=== PATIENT | female | born 1990 | race African-American/Black ===

== ENCOUNTER 2022-01-24 11:09 | Outpatient (CLI) | payer OTHER ==
[2022-01-24 17:45] LABS: BASOPHILS # (AUTO) 0.1 10^3/uL (0.0-0.1); BASOPHILS % (AUTO) 0.9 %; EOSINOPHILS # (AUTO) 0.4 10^3/uL (0.0-0.7); EOSINOPHILS % (AUTO) 5.8 %; HCT - HEMATOCRIT 44.9 % (37.0-47.0); LYMPHOCYTES # (AUTO) 2.4 10^3/uL (1.5-3.5); LYMPHOCYTES % (AUTO) 34.1 %; MEAN CORPUSCULAR HEMOGLOBIN 28.2 pg (27.0-31.0); MEAN CORPUSCULAR HGB CONC 31.2 g/dL (32.0-36.0); MEAN CORPUSCULAR VOLUME 90.3 fL (81.0-99.0); MONOCYTES # (AUTO) 0.7 10^3/uL (0.0-1.0); MONOCYTES % (AUTO) 9.9 %; NEUTROPHILS # (AUTO) 3.4 10^3/uL (1.5-6.6); NEUTROPHILS % (AUTO) 49.2 %; PLT - PLATELET COUNT 335 10^3/uL (130-450); RED BLOOD COUNT 4.97 10^6/uL (4.20-5.40); RED CELL DISTRIBUTION WIDTH 11.8 % (12.0-15.0); WHITE BLOOD COUNT 6.9 x10^3/uL (4.8-10.8)
[2022-01-24 18:28] LABS: ALBUMIN 4.7 g/dL (3.2-5.5); ALBUMIN/GLOBULIN RATIO 1.1 (1.0-2.2); ALKALINE PHOSPHATASE 57 IU/L (42-121); ALT ALANINE AMINOTRANSFERASE 11 IU/L (10-60); AST ASPARTATE AMINOTRANSFERASE 22 IU/L (10-42); BILIRUBIN,TOTAL 0.8 mg/dL (0.2-1.0); BUN - BLOOD UREA NITROGEN 9 mg/dL (6-20); CARBON DIOXIDE - CO2 26 mmol/L (21-32); CHLORIDE 103 mmol/L (101-111); CHOL/HDL RATIO 3.4 (<4.4); CHOLESTEROL 201 mg/dL; CREATININE 0.7 mg/dL (0.4-1.0); GFR - MDRD 118 (>89); GLUCOSE 75 mg/dL (70-100); HDL CHOLESTEROL 60 mg/dL; LDL CHOLESTEROL,CALCULATED 127 mg/dL; LDL/HDL RATIO 2.1 (<4.4); POTASSIUM 4.1 mmol/L (3.5-5.0); SODIUM 139 mmol/L (135-145); TOTAL PROTEIN 8.8 g/dL (6.7-8.2); TRIGLYCERIDES 69 mg/dL; VLDL CHOLESTEROL 14 mg/dL
[2022-01-24 18:47] LABS: THYROID STIMULATING HORMONE 0.63 uIU/mL (0.34-5.60)
== END 2022-01-24 11:10 | disposition home or self-care (01) ==
LOC: LAB.N 11:09
PROVIDERS: ATTEND Nurse Practitioner
DX: R53.83 Other fatigue (principal); R63.6 Underweight; Z13.220 Encounter for screening for lipoid disorders
CPT/HCPCS: 36415; 80053; 80061; 83721; 84443; 85025

== ENCOUNTER 2022-05-10 13:21 | Outpatient (CLI) | payer OTHER ==
[2022-05-10 22:11] LABS: CHLAMYDIA TRACHOMATIS DNA NEGATIVE (NEGATIVE); NEISSERIA GONORRHOEAE DNA NEGATIVE (NEGATIVE); TRICHOMONAS VAGINALIS DNA NEGATIVE (NEGATIVE)
[2022-05-12 07:10] LABS: RPR Non Reactive (Non Reactive)
[2022-05-13 06:11] LABS: HIV SCREEN 4TH GENERATION Non Reactive (Non Reactive)
== END 2022-05-10 13:22 | disposition home or self-care (01) ==
LOC: LAB.N 13:21
PROVIDERS: ATTEND Nurse Practitioner
DX: Z11.3 Encounter for screening for infections with a predominantly sexual mode of transmission (principal)
CPT/HCPCS: 86592; 87389; 87491; 87591; 87661

== ENCOUNTER 2022-06-28 13:34 | Emergency (ER) | payer OTHER ==
--- NOTE | 2022-06-28 13:52 | ED Physician Documentation ---
PD HPI MHE - Stated complaint Stated Complaint: MHE - Chief complaint Chief Complaint: Neuro - History obtained from History obtained from: Patient - History of Present Illness Primary symptom: Anxiety, Other (emotional (talking loudly and anxious, but also even extra elated/ singing/ overly happy) for a week or so. Reportedly she had been having anxiety and insomnia and was feeling tired and lightheaded. Last Monday she had possible syncope at work. Seen at [facility] ER.) Contributing factors: Other (She has been having problems with anxiety and depression and has been on Lexapro. Recent increase in dose from 10 to 20 mg a couple of weeks ago per patient and provider. She had had insomnia. No recent medication for that. She does use cannibis at times.). No: Substance abuse - drugs Recently seen: Emergency Dept (seen At [facility] ER in [place] last Monday (4 days ago) with report of insomnia and anxiety and general weakness w ith a apparent syncope. ER report is obtained from [facility]. They did basic blood tests. They did not feel concussive symptoms were present. They did have SW see pt.) Review of Systems Constitutional: denies: Fever, Chills Nose: denies: Rhinorrhea / runny nose Throat: denies: Sore throat Respiratory: denies: Cough GI: denies: Vomiting, Diarrhea Neurologic: denies: Generalized weakness, Headache Psychiatric: reports: Anxiety, Insomnia. 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 : None HEENT: None Psych: Anxiety Musculoskeletal: None Derm: None - Past Surgical History Past Surgical History: No - Present Medications Home Medications: Ambulatory Orders Medication Instructions Recorded Confirmed Escitalopram [Lexapro] 10 mg PO DAILY 06/28/22 traZODone [Desyrel] 50 mg PO HS PRN 10 Days #10 tablet 06/28/22 - Allergies Allergies/Adverse Reactions: Allergies Allergy/AdvReac Type Severity Reaction Status Date / Time No Known Drug Allergies Allergy Verified 06/28/22 13:46 - Social History Does the pt smoke?: No Smoking Status: Never smoker Does the pt drink ETOH?: Yes Does the pt have substance abuse?: No - Immunizations Immunizations are current?: Yes - POLST Patient has POLST: No PD ED PE NORMAL - Vitals Vital signs reviewed: Yes - General General: Alert and oriented X 3, Well developed/nourished (thin body habitus), Other (She is actually somewhat excessively cheerful with "singsong" pattern of voice. There is some tangentiality. It is not pressured.) - HEENT HEENT: Atraumatic - Neck Neck: Supple, no meningeal sign, No adenopathy - Cardiac Cardiac: RRR, No murmur - Respiratory Respiratory: Clear bilaterally - Derm Derm: Normal color, Warm and dry - Neuro Neuro: Alert and oriented X 3, No motor deficit, Normal speech Results - Vitals Vitals: Vital Signs - 24 hr 06/28/22 06/28/22 06/28/22 13:39 13:43 14:18 Temperature 37.0 C Heart Rate 109 H 97 Respiratory 16 16 16 Rate Blood Pressure 132/85 H O2 Saturation 100 100 06/28/22 06/28/22 15:45 16:07 Temperature Heart Rate Respiratory 16 15 Rate Blood Pressure O2 Saturation Oxygen O2 Source Room air - Labs Labs: Laboratory Tests 06/28/22 06/28/22 06/28/22 14:16 14:16 14:16 WBC 10.0 RBC 4.20 Hgb 12.3 Hct 38.6 MCV 91.9 MCH 29.3 MCHC 31.9 L RDW 11.9 L Plt Count 339 MPV 9.2 Neut # (Auto) 8.5 H Lymph # (Auto) 0.9 L [place] # (Auto) 0.5 Eos # (Auto) 0.0 Baso # (Auto) 0.0 Absolute Nucleated RBC 0.00 Nucleated RBC % 0.0 Sodium 137 Potassium 3.6 Chloride 102 Carbon Dioxide 22 Anion Gap 13.0 BUN 6 Creatinine 0.6 Estimated GFR (MDRD) 140 Glucose 155 H Calcium 9.3 Total Bilirubin 0.6 AST 32 ALT 17 Alkaline Phosphatase 40 L Total Protein 8.1 Albumin 4.6 Globulin 3.5 Albumin/Globulin Ratio 1.3 Lipase 33 TSH 0.73 Urine Color Urine Clarity Urine pH Ur Specific [place] Urine Protein Urine Glucose (UA) Urine Ketones Urine Occult Blood Urine Nitrite Urine Bilirubin Urine Urobilinogen Ur Leukocyte Esterase Ur Microscopic Review Urine Culture Comments Urine HCG, Qual Urine Opiates Screen Ur Oxycodone Screen Urine Methadone Screen Ur Propoxyphene Screen Ur Barbiturates Screen Ur Tricyclics Screen Ur Phencyclidine Scrn Ur Amphetamine Screen U Methamphetamines Scrn U Benzodiazepines Scrn Urine Cocaine Screen U Cannabinoids Screen Ethyl Alcohol < 5.0 06/28/22 14:34 WBC RBC Hgb Hct MCV MCH MCHC RDW Plt Count MPV Neut # (Auto) Lymph # (Auto) [place] # (Auto) Eos # (Auto) Baso # (Auto) Absolute Nucleated RBC Nucleated RBC % Sodium Potassium Chloride Carbon Dioxide Anion Gap BUN Creatinine Estimated GFR (MDRD) Glucose Calcium Total Bilirubin AST ALT Alkaline Phosphatase Total Protein Albumin Globulin Albumin/Globulin Ratio Lipase TSH Urine Color LIGHT YELLOW Urine Clarity CLEAR Urine pH 6.0 Ur Specific [place] 1.015 Urine Protein NEGATIVE Urine Glucose (UA) NEGATIVE Urine Ketones NEGATIVE Urine Occult Blood NEGATIVE Urine Nitrite NEGATIVE Urine Bilirubin NEGATIVE Urine Urobilinogen 0.2 (NORMAL) Ur Leukocyte Esterase NEGATIVE Ur Microscopic Review NOT INDICATED Urine Culture Comments NOT INDICATED Urine HCG, Qual NEGATIVE Urine Opiates Screen NEGATIVE Ur Oxycodone Screen NEGATIVE Urine Methadone Screen NEGATIVE Ur Propoxyphene Screen NEGATIVE Ur Barbiturates Screen NEGATIVE Ur Tricyclics Screen NEGATIVE Ur Phencyclidine Scrn NEGATIVE Ur Amphetamine Screen NEGATIVE U Methamphetamines Scrn NEGATIVE U Benzodiazepines Scrn NEGATIVE Urine Cocaine Screen NEGATIVE U Cannabinoids Screen POSITIVE H Ethyl Alcohol PD Medical Decision Making - ED course Complexity details: reviewed old records (The ER report from [facility] from 4 days ago was faxed to us and I reviewed the testing and social work note. They did not feel she met grounds for disability. Referred back to her primary care.), d/w PMD (I talked with the patient's primary care in the office. Concern is the increased Lexapro dose may have brought out some manic type symptoms so concern for bipolar. Consensus was to decrease the Lexapro would back down to 10 mg and add 50 mg trazodone at night to help with insomnia and mood.), d/w is consultant (I talked with our web content & social media manager Tarah and had her evaluate the patient. Concern was for the patient's degree of hypomania and whether she would be safe as is. Tarah believes the DCR should evaluate the patient and they are contacted.) Departure - Departure Clinical Impression: Anxiety, Insomnia, Hypomania Condition: Stable Record reviewed to determine appropriate education?: Yes Follow-Up: Shahrzad Cooper ARNP [Primary Care Provider] - Prescriptions: traZODone [Desyrel] 50 mg PO HS PRN 10 Days #10 tablet PRN Reason: Insomnia
[2022-06-28] MEDS ORDERED: OLANZapine ODT 5 MG TABLET TL STA (14:08)
[2022-06-28 14:32] LABS: ALBUMIN 4.6 g/dL (3.2-5.5); ALBUMIN/GLOBULIN RATIO 1.3 (1.0-2.2); ALKALINE PHOSPHATASE 40 IU/L (42-121); ALT ALANINE AMINOTRANSFERASE 17 IU/L (10-60); AST ASPARTATE AMINOTRANSFERASE 32 IU/L (10-42); BILIRUBIN,TOTAL 0.6 mg/dL (0.2-1.0); BUN - BLOOD UREA NITROGEN 6 mg/dL (6-20); CALCIUM 9.3 mg/dL (8.5-10.3); CARBON DIOXIDE - CO2 22 mmol/L (21-32); CHLORIDE 102 mmol/L (101-111); CREATININE 0.6 mg/dL (0.4-1.0); ETOH - ETHANOL < 5.0 mg/dL; GFR - MDRD 140 (>89); GLUCOSE 155 mg/dL (70-100); LIPASE 33 U/L (22-51); POTASSIUM 3.6 mmol/L (3.5-5.0); SODIUM 137 mmol/L (135-145); TOTAL PROTEIN 8.1 g/dL (6.7-8.2)
[2022-06-28 14:35] LABS: BASOPHILS % (AUTO) 0.3 %; HCT - HEMATOCRIT 38.6 % (37.0-47.0); HGB - HEMOGLOBIN 12.3 g/dL (12.0-16.0); LYMPHOCYTES # (AUTO) 0.9 10^3/uL (1.5-3.5); LYMPHOCYTES % (AUTO) 8.9 %; MEAN CORPUSCULAR HEMOGLOBIN 29.3 pg (27.0-31.0); MEAN CORPUSCULAR HGB CONC 31.9 g/dL (32.0-36.0); MEAN CORPUSCULAR VOLUME 91.9 fL (81.0-99.0); MEAN PLATELET VOLUME 9.2 fL (7.9-10.8); MONOCYTES # (AUTO) 0.5 10^3/uL (0.0-1.0); MONOCYTES % (AUTO) 4.6 %; NEUTROPHILS # (AUTO) 8.5 10^3/uL (1.5-6.6); NEUTROPHILS % (AUTO) 85.8 %; PLT - PLATELET COUNT 339 10^3/uL (130-450); RED CELL DISTRIBUTION WIDTH 11.9 % (12.0-15.0)
[2022-06-28 14:40] LABS: MUDS CUTOFF CONCENTRATIONS CUTOFF CONC BELOW:
[2022-06-28 14:46] LABS: BILIRUBIN,URINE NEGATIVE (NEGATIVE); GLUCOSE, URINE (UA) NEGATIVE (NEGATIVE); KETONES,URINE (UA) NEGATIVE (NEGATIVE); LEUKOCYTE ESTERASE, URINE NEGATIVE (NEGATIVE); NITRITE,URINE NEGATIVE (NEGATIVE); OCCULT BLOOD,URINE NEGATIVE (NEGATIVE); PROTEIN,URINE NEGATIVE (NEGATIVE); UROBILINOGEN,URINE 0.2 (NORMAL) E.U./dL (NORMAL)
[2022-06-28 14:49] LABS: CLARITY,URINE CLEAR (CLEAR); HCG UR QUAL NEGATIVE
[2022-06-28] MEDS ORDERED: OLANZapine ODT 5 MG TABLET TL ONE (15:00)
[2022-06-28 15:01] LABS: AMPHETAMINE SCREEN,URINE NEGATIVE (NEGATIVE); BARBITURATE SCREEN,UR NEGATIVE (NEGATIVE); BENZODIAZEPINES SCREEN, URINE NEGATIVE (NEGATIVE); COCAINE SCREEN URINE NEGATIVE (NEGATIVE); METHADONE SCREEN, URINE NEGATIVE (NEGATIVE); METHAMPHETAMINES SCREEN, URINE NEGATIVE (NEGATIVE); OPIATE SCREEN, URINE NEGATIVE (NEGATIVE); OXYCODONE SCREEN, URINE NEGATIVE (NEGATIVE); PROPOXYPHENE SCREEN, URINE NEGATIVE (NEGATIVE); THC CANNABINOID SCREEN, URINE POSITIVE (NEGATIVE); TRICYCLIC ANTIDEPRESSANT,URINE NEGATIVE (NEGATIVE)
--- NOTE | 2022-06-28 20:06 | ED Physician Documentation ---
ED Addendum - Addendum Addendum: 06/28/22 20:[address] eRina at shift change. Briefly this is a 31-year-old woman who presents with pressured speech after an increase in Lexapro. The plan was to have the DCR evaluate her. At this point that process is complete. I discussed with the DCR and she is not detaining her. She will have the out reach social economist call her tomorrow. Disposition: Discharged home Condition: Stable
[2022-06-28 20:16] VITALS: BP 119/79
[2022-06-28] MEDS ORDERED: traZODone 50 MG TABLET PO STA (20:36)
== END 2022-06-28 20:43 | disposition home or self-care (01) ==
LOC: EDBD → ED 13:34
DX: F41.9 Anxiety disorder, unspecified (principal); G47.00 Insomnia, unspecified; F30.8 Other manic episodes; Z20.822 Contact with and (suspected) exposure to COVID-19
CPT/HCPCS: 36415; 80053; 80306; 80320; 81003; 81025; 83690; 84443; 85025; 87635; 99283; 99284; A9270; 81001; 87086

== ENCOUNTER 2022-07-02 01:12 | Emergency (ER) | payer OTHER ==
[2022-07-02 02:25] LABS: BASOPHILS # (AUTO) 0.1 10^3/uL (0.0-0.1); BASOPHILS % (AUTO) 0.6 %; EOSINOPHILS # (AUTO) 0.1 10^3/uL (0.0-0.7); EOSINOPHILS % (AUTO) 1.5 %; HCT - HEMATOCRIT 38.1 % (37.0-47.0); HGB - HEMOGLOBIN 12.2 g/dL (12.0-16.0); LYMPHOCYTES # (AUTO) 1.9 10^3/uL (1.5-3.5); LYMPHOCYTES % (AUTO) 19.5 %; MEAN CORPUSCULAR HEMOGLOBIN 29.5 pg (27.0-31.0); MEAN CORPUSCULAR VOLUME 92.3 fL (81.0-99.0); MEAN PLATELET VOLUME 9.2 fL (7.9-10.8); MONOCYTES # (AUTO) 0.6 10^3/uL (0.0-1.0); MONOCYTES % (AUTO) 6.1 %; NEUTROPHILS # (AUTO) 6.9 10^3/uL (1.5-6.6); NEUTROPHILS % (AUTO) 71.9 %; PLT - PLATELET COUNT 331 10^3/uL (130-450); RED BLOOD COUNT 4.13 10^6/uL (4.20-5.40); RED CELL DISTRIBUTION WIDTH 11.9 % (12.0-15.0); WHITE BLOOD COUNT 9.7 x10^3/uL (4.8-10.8)
[2022-07-02 02:26] LABS: BILIRUBIN,URINE NEGATIVE (NEGATIVE); GLUCOSE, URINE (UA) NEGATIVE (NEGATIVE); KETONES,URINE (UA) NEGATIVE (NEGATIVE); LEUKOCYTE ESTERASE, URINE TRACE (NEGATIVE); MUDS CUTOFF CONCENTRATIONS CUTOFF CONC BELOW:; NITRITE,URINE NEGATIVE (NEGATIVE); OCCULT BLOOD,URINE MODERATE (NEGATIVE); PROTEIN,URINE NEGATIVE (NEGATIVE); UROBILINOGEN,URINE 0.2 (NORMAL) E.U./dL (NORMAL)
[2022-07-02 02:28] LABS: CLARITY,URINE CLEAR (CLEAR)
[2022-07-02 02:30] LABS: HCG UR QUAL NEGATIVE
[2022-07-02 02:33] LABS: BACTERIA,URINE Few /HPF (None Seen); RBC,URINE 0-5 /HPF (0-5); SQUAMOUS EPITHELIAL CELL,UR FEW Squamous (<= Few); WBC,URINE 0-3 /HPF (0-5)
[2022-07-02 02:44] LABS: ACETAMINOPHEN < 10 ug/mL (10-30); ALBUMIN 4.5 g/dL (3.2-5.5); ALBUMIN/GLOBULIN RATIO 1.2 (1.0-2.2); ALKALINE PHOSPHATASE 38 IU/L (42-121); ALT ALANINE AMINOTRANSFERASE 15 IU/L (10-60); AMPHETAMINE SCREEN,URINE NEGATIVE (NEGATIVE); AST ASPARTATE AMINOTRANSFERASE 26 IU/L (10-42); BARBITURATE SCREEN,UR NEGATIVE (NEGATIVE); BENZODIAZEPINES SCREEN, URINE NEGATIVE (NEGATIVE); BILIRUBIN,TOTAL 0.4 mg/dL (0.2-1.0); BUN - BLOOD UREA NITROGEN 11 mg/dL (6-20); CALCIUM 9.7 mg/dL (8.5-10.3); CARBON DIOXIDE - CO2 25 mmol/L (21-32); CHLORIDE 102 mmol/L (101-111); COCAINE SCREEN URINE NEGATIVE (NEGATIVE); CREATININE 0.7 mg/dL (0.4-1.0); ETOH - ETHANOL < 5.0 mg/dL; GFR - MDRD 118 (>89); GLUCOSE 100 mg/dL (70-100); LIPASE 33 U/L (22-51); METHADONE SCREEN, URINE NEGATIVE (NEGATIVE); METHAMPHETAMINES SCREEN, URINE NEGATIVE (NEGATIVE); OPIATE SCREEN, URINE NEGATIVE (NEGATIVE); OXYCODONE SCREEN, URINE NEGATIVE (NEGATIVE); POTASSIUM 3.5 mmol/L (3.5-5.0); PROPOXYPHENE SCREEN, URINE NEGATIVE (NEGATIVE); SALICYLATE < 6.0 mg/dL; SODIUM 137 mmol/L (135-145); THC CANNABINOID SCREEN, URINE POSITIVE (NEGATIVE); TOTAL PROTEIN 8.4 g/dL (6.7-8.2); TRICYCLIC ANTIDEPRESSANT,URINE NEGATIVE (NEGATIVE)
--- NOTE | 2022-07-02 04:46 | ED Physician Documentation ---
PD HPI ALTERED MENTAL STATUS - Stated complaint Stated Complaint: AMS - Chief complaint Chief Complaint: Neuro - History obtained from History obtained from: Patient - History of Present Illness Recently seen: Emergency Dept - Additional information Additional information: Patient is brought to the emergency department by her friend who is concerned that patient has been exhibiting odd behavior. The HPI from patient is limited due to odd behavior. In trying to provide HPI, patient is frequently rambling and tangential, at times appears to be angry and then suddenly becomes tearful and appears overwhelmed. She says she was evaluated for a head injury last week in ED. She was more recently evaluated in this ED ([facility], 06/28) for manic behavior. She says she has a follow-up appointment with her PMD within the coming week, and is scheduled to meet with a psychiatrist July 27. She tells me she has bipolar disorder and feels paranoid at times; she says she has been experiencing insomnia. She denies SI, HI, AH, VH. Review of Systems Unable to obtain: Other (limited ROS due to odd/manic behavior) Psychiatric: reports: Anxiety, Insomnia. 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 : None HEENT: None Psych: Anxiety Musculoskeletal: None Derm: None - Past Surgical History Past Surgical History: No - Present Medications Home Medications: Ambulatory Orders Medication Instructions Recorded Confirmed Escitalopram [Lexapro] 10 mg PO DAILY 06/28/22 traZODone [Desyrel] 50 mg PO HS PRN 10 Days #10 tablet 06/28/22 - Allergies Allergies/Adverse Reactions: Allergies Allergy/AdvReac Type Severity Reaction Status Date / Time No Known Drug Allergies Allergy Verified 07/02/22 01:38 - Social History Does the pt smoke?: No Smoking Status: Never smoker Does the pt drink ETOH?: Yes Does the pt have substance abuse?: No - Immunizations Immunizations are current?: Yes - POLST Patient has POLST: No PD ED PE NORMAL - Vitals Vital signs reviewed: Yes - General General: Well developed/nourished, Other (awake, alert, oriented to person, place. she exhibits pressured speech, rapidly fluctuating mood (angry, tearful)) - HEENT HEENT: PERRL, EOMI, Moist mucous membranes - Cardiac Cardiac: RRR, No murmur - Respiratory Respiratory: No respiratory distress, Clear bilaterally - Neuro Eye Opening: Spontaneous Motor: Obeys Commands Verbal: Confused GCS Score: 14 PD ED PE EXPANDED - Psych Psych: Tearful, Anxious, Pressured speech, Other (tangential, confused at times (often loses track of what she is trying to say and says "I'm confused")) Results - Vitals Vitals: Vital Signs - 24 hr 07/02/22 07/02/22 07/02/22 01:23 02:07 04:49 Temperature 36.9 C Heart Rate 86 74 105 H Respiratory 18 16 Rate Blood Pressure 119/74 124/86 H 140/89 H O2 Saturation 100 100 100 07/02/22 07/02/22 05:56 15:56 Temperature Heart Rate 93 85 Respiratory 18 16 Rate Blood Pressure 114/64 119/82 H O2 Saturation 98 100 Oxygen O2 Source Room air - Labs Labs: Microbiology 07/02/22 02:18 Urine Culture - Preliminary Urine,Clean Catch CULTURE IN PROGRESS. RESULTS TO FOLLOW. Laboratory Tests 07/02/22 07/02/22 07/02/22 02:18 02:18 02:18 WBC 9.7 RBC 4.13 L Hgb 12.2 Hct 38.1 MCV 92.3 MCH 29.5 MCHC 32.0 RDW 11.9 L Plt Count 331 MPV 9.2 Neut # (Auto) 6.9 H Lymph # (Auto) 1.9 [place] # (Auto) 0.6 Eos # (Auto) 0.1 Baso # (Auto) 0.1 Absolute Nucleated RBC 0.00 Nucleated RBC % 0.0 VBG Total Hgb VBG Oxyhemoglobin VBG Carboxyhemoglobin VBG Methemoglobin Sodium 137 Potassium 3.5 Chloride 102 Carbon Dioxide 25 Anion Gap 10.0 BUN 11 Creatinine 0.7 Estimated GFR (MDRD) 118 Glucose 100 Calcium 9.7 Total Bilirubin 0.4 AST 26 ALT 15 Alkaline Phosphatase 38 L Total Protein 8.4 H Albumin 4.5 Globulin 3.9 Albumin/Globulin Ratio 1.2 Lipase 33 TSH 0.82 Urine Color Urine Clarity Urine pH Ur Specific [place] Urine Protein Urine Glucose (UA) Urine Ketones Urine Occult Blood Urine Nitrite Urine Bilirubin Urine Urobilinogen Ur Leukocyte Esterase Urine RBC Urine WBC Ur Squamous Epith Cells Urine Bacteria Ur Microscopic Review Urine Culture Comments Urine HCG, Qual Salicylates < 6.0 Urine Opiates Screen Ur Oxycodone Screen Urine Methadone Screen Ur Propoxyphene Screen Acetaminophen < 10 L Ur Barbiturates Screen Ur Tricyclics Screen Ur Phencyclidine Scrn Ur Amphetamine Screen U Methamphetamines Scrn U Benzodiazepines Scrn Urine Cocaine Screen U Cannabinoids Screen Ethyl Alcohol < 5.0 07/02/22 07/02/22 02:18 06:06 WBC RBC Hgb Hct MCV MCH MCHC RDW Plt Count MPV Neut # (Auto) Lymph # (Auto) [place] # (Auto) Eos # (Auto) Baso # (Auto) Absolute Nucleated RBC Nucleated RBC % VBG Total Hgb 13.4 VBG Oxyhemoglobin 70 L VBG Carboxyhemoglobin 1.1 VBG Methemoglobin 0.4 Sodium Potassium Chloride Carbon Dioxide Anion Gap BUN Creatinine Estimated GFR (MDRD) Glucose Calcium Total Bilirubin AST ALT Alkaline Phosphatase Total Protein Albumin Globulin Albumin/Globulin Ratio Lipase TSH Urine Color YELLOW Urine Clarity CLEAR Urine pH 6.0 Ur Specific [place] 1.010 Urine Protein NEGATIVE Urine Glucose (UA) NEGATIVE Urine Ketones NEGATIVE Urine Occult Blood MODERATE H Urine Nitrite NEGATIVE Urine Bilirubin NEGATIVE Urine Urobilinogen 0.2 (NORMAL) Ur Leukocyte Esterase TRACE H Urine RBC 0-5 Urine WBC 0-3 Ur Squamous Epith Cells FEW Squamous Urine Bacteria Few Ur Microscopic Review INDICATED Urine Culture Comments INDICATED Urine HCG, Qual NEGATIVE Salicylates Urine Opiates Screen NEGATIVE Ur Oxycodone Screen NEGATIVE Urine Methadone Screen NEGATIVE Ur Propoxyphene Screen NEGATIVE Acetaminophen Ur Barbiturates Screen NEGATIVE Ur Tricyclics Screen NEGATIVE Ur Phencyclidine Scrn NEGATIVE Ur Amphetamine Screen NEGATIVE U Methamphetamines Scrn NEGATIVE U Benzodiazepines Scrn NEGATIVE Urine Cocaine Screen NEGATIVE U Cannabinoids Screen POSITIVE H Ethyl Alcohol PD Medical Decision Making - ED course Complexity details: reviewed old records, reviewed results, re-evaluated patient, considered differential, d/w patient ED course: Patient presents with odd, manic behavior. As noted above, she fluctuates rapidly tween appearing to be very angry and will suddenly become tearful, even crying at times, frequently loses track of what she is saying and says "I am confused". A telepsych consult is obtained. Although patient seems angry with me when I recommended getting the telemetry psychiatric consult, she does consent to it. The patient tells me "I already have a psychiatrist", but then indicates to me that she is not scheduled to meet with a psychiatrist until next month on 27 July. I explained to the patient that I am concerned that the medication regimen she is currently on does not appear to be having the desired effect. Telemetry psychiatric consult is obtained and the recommendation is for the patient to stop her current medications (trazodone, escitalopram, buspirone), and to start olanzapine 5 mg nightly. Telepsychiatrist says that patient can be given a dose of olanzapine in the emergency department now with the initial dose of 2.5 mg, and a repeat dose of the same 2.5 mg dose can be given if patient does not have adverse effect but does not have adequate symptom control. The telepsychiatrist indicates to me that she tried to get in touch with the patient's who is reportedly on deployment, but was unsuccessful in this attempt. Thus, the telepsychiatrist contacted Ashley, who is on [place] as the point of contact for this patient. Ashley will look into whether she can arrange with her work time off so that she can stay with the patient and observe her behavior for the coming week. If Ever is not able to arrange this, the telepsychiatrist concern is that there will be no one who can reliably observe the patient for the coming week to monitor for worsening manic behaviors; if this is the case, then telepsychiatry recommends inpatient stay at an appropriate mental health capable facility. Care of patient is turned over to the oncoming ED physician (Dr. Modi). Social work consult is obtained and this is also pending at the end of my shift. Departure - Departure Disposition: [facility] Psych Hosp/Unit DC/Xfer
[2022-07-02] MEDS ORDERED: ESCITALOPRAM 10 MG TABLET PO STA (05:40)
[2022-07-02 06:28] LABS: CARBOXYHEMOGLOBIN VENOUS 1.1 % (0-1.5); HEMOGLOBIN TOTAL, VENOUS WB 13.4 g/dL (12.0-18.0); METHEMOGLOBIN VENOUS 0.4 % (0-1.5)
[2022-07-02] MEDS ORDERED: OLANZapine ODT 5 MG TABLET TL STA (08:00)
--- NOTE | 2022-07-02 08:07 | TELEPSYCH PHYS NOTE ---
Telepsych Consultation Note Consult: Name: BRADFORD VELASCOEDOB: 1990 DateandTime: 07/02/2022 10:08:08 AM Location of the patient: [facility] EDLocation of the doctor: [place] Length of consult: 60 This evaluation was conducted via video telepsychiatry with the assistance of onsite staff Reason for consult: assess active risk factor Requested by: Dr. Bautista History of Present Illness: Patient seen in ED via telehealth with local staff assistance. Per attending, patient came in to ED also on 06/28 and was seen by SW, but released as she did not meet full criteria for inpatient admission at that time. There have been concerns for a recent head injury and possible gas leak at home. Lexapro reduced at last ED admission to 10mg with concern for jony. Friend brought patient in today for continued emotional disturbance. UDS + THC. Patient reports she "went to a bar before hand, didnt sleep, then I hit my head and woke up in the hospital last Monday". She then had a "scheduled panic attack" Monday and a reports a "gas leak" 07/01. She reports she feels "confused, paranoid and agitated". Thoughts are racing and she "cant get a thought out". 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 She admits she is having "trouble sitting still". Patient denies SI, HI. She reports she used some THC and "i dont think I am going to do that again". She would rather go home and sleep, doesnt want to be in the hospital. Her is deployed but she thinks she has some friends who would supervise her for awhile outpatient. Collateral Contacted: YesCollateral name:Jocelyn phone number: [phone] relationship to the patient:emergency contact, friend Sleep issues?: YesSleep Quantity:not sleepingSleep Quality:poor Psychiatric History/Treatment History: Past diagnoses: depression, anxiety Hospitalizations: No Current Treatment:YesMedication management:YesMedications:lexapro, trazodoneTherapy:No Suicide Assessment: PSS-3: 1) Over the past 2 weeks have you felt down, depressed or hopeless?No 2) Over the past 2 weeks have you had thoughts of killing yourself?No 3) Have you ever in your life attempted to kill yourself?Yes Within the past 6 months?No Description:as a child, tried to OD [employer]-based Safety Assessment: Risk Factors Stressors: MH issues, deployed Attempts/Self-injury: No Impulsivity:YesDescription: Drug/Alcohol History:YesDescription: Trauma History:YesDescription: Access to firearms:YesDescription: HI/Violence/Property destruction:No Legal: No Family Psych History:YesDescription:father from AUD, mother with Personality disorder Family History of suicide:No Protective Factors: Can handle stress well?No Denominational?Unknown-NA External: Social supports/ Therapeutic relationships: YesDescription: Relationship history: Living situation: Employment: YesDescription:new job started this past week Education: grad hs Responsibility to family/children/work: YesDescription: Future orientation:YesDescription:wants to feel better, wants to work Health History: Medical History: underweight Medications & Freq: lexapro 10mg daily trazodone 50mg QHS Allergies: KNDA Mental Status Exam: Appearance and Attire:Good eye contact, Thin Psychomotor agitation:restless, fidgety Attitude and behavior:Cooperative Speech:Rapid Mood:Irritable, Anxious Affect:Constricted Thought process:Derailment, Flight of ideas, Racing thoughts Thought content:Paranoia Perception:No hallucinations Intel:Average Abstract:Appropriate Language:No abnormality Orientation:Oriented x 4 Sense:Distractible Knowledge:Appropriate for education and socioeconomic status Memory:Intact Insight:Mild impairment Judgement:Moderate impairmentImpaired in self care Gait:No abnormality Impression/Risk Assessment: Current Suicide Risk Elevated?No Current Violence Risk Elevated?No Issues with ability to care for self?Yes Description:thought disorganization is impairing ability to stay on top of self care Summary: Patient is a 32 yo AA female with a history of depression and anxiety who presents to ED with a friend for worsening thought disorganization and confusion. Patient reports increased paranoia, racing thoughts and feeling agitated. She has been using THC and may have had a head injury in the last week which could have worsened her presentation. Lexapro was recently reduced with concern for jony a week ago, but symptoms have continued. Patient is a good candidate for stopping antidepressant treatment and starting a mood stabilizing medication. She is mildly disorganized on presentation, but is not suicidal or homicidal and has been redirectable and agreeable to treatment. Certainly she needs direct supervision for her own safety at this time. If a reasonable hot packer cannot assist her in the community while she waits for outpatient care, she should be admitted inpatient to ensure stabilization. Diagnosis: F31.12 Bipolar disorder, current episode manic without psychotic features, moderate CPT Codes: 71382 - Psychiatric Diagnostic Evaluation with Medical Services Treatment Plan: General: Stop lexapro and trazodone. Start olanzapine 5mg QHS. May give patient low dose in ED now, 2.5mg, to test tolerance and reduce any agitation. Doses as high as 10mg QHS may be considered if low doses do not assist sufficiently while she remain in the ED today. Patient's friend, Ashley, indicates she may be willing to take responsibility for patient for now and assist her with outpatient follow up needs. If this is not possible, please refer patient for inpatient psychiatric hospitalization as she is not safe to care for herself at this time. Please request patient and family/friend assist with moving psychiatry appt to earlier date. If patient's symptoms continue and patient remains outpatient, please encourage ED contact again for re-assessment. Level of Care: as above Psychiatric Clearance: YesDescription:if community supervision can be arranged, if not- patient must be psychiatrically hospitalized for her own safety and stabilization Observation level 1:1 needed?: YesNotes:awol and disorganization concerns Pharmacological: start olanzapine as above Patient psychotic?YesWas a standing psychotic ordered?YesDescription: minimal paranoia currently- starting olanzapine for jony stabilization Therapy: supportive Follow up needed while in the hospital?: YesNumber of times:daily if admitted Discussed plan with onsite tennis desk team member: Yes Who anita Andrade Other: List names and roles of persons who participated in consult: Anita Shook
--- NOTE | 2022-07-02 13:28 | ED Physician Documentation ---
ED Addendum - Addendum Addendum: 07/02/22 13:27 Seen by director of social services and arrangements made for her to go to [facility], but not until much later in the evening. [place] were completed. She is stable for transport. Disposition: Transferred to psychiatric facility Condition: Stable Diagnosis: 1. Decompensated bipolar disorder
[2022-07-03 02:36] VITALS: BP 122/80
== END 2022-07-02 23:20 ==
LOC: ED 01:12
DX: F31.12 Bipolar disorder, current episode manic without psychotic features, moderate (principal)
CPT/HCPCS: 36415; 80053; 80306; 80307; 80320; 80329; 81001; 81025; 82375; 83690; 84443; 85025; 87086; 90834; 99285; A9270; Q3014; 81003

== ENCOUNTER 2022-08-18 10:30 | Outpatient (CLI) | payer OTHER ==
[2022-08-18 20:56] LABS: CHLAMYDIA TRACHOMATIS DNA NEGATIVE (NEGATIVE); NEISSERIA GONORRHOEAE DNA NEGATIVE (NEGATIVE); TRICHOMONAS VAGINALIS DNA NEGATIVE (NEGATIVE)
[2022-08-19 05:13] LABS: HCV AB Non Reactive (Non Reactive); HIV SCREEN 4TH GENERATION Non Reactive (Non Reactive)
[2022-08-19 09:11] LABS: HSV 2 IGG TYPE SPEC <0.91 index (0.00-0.90); RPR Non Reactive (Non Reactive)
== END 2022-08-18 10:45 | disposition home or self-care (01) ==
LOC: LAB.N 10:30
PROVIDERS: ATTEND Nurse Practitioner
DX: Z11.3 Encounter for screening for infections with a predominantly sexual mode of transmission (principal)
CPT/HCPCS: 36415; 86592; 86695; 86696; 86803; 87389; 87491; 87591; 87661

== ENCOUNTER 2022-11-09 08:33 | Outpatient (CLI) | payer OTHER ==
[2022-11-09 12:01] LABS: BASOPHILS # (AUTO) 0.1 10^3/uL (0.0-0.1); BASOPHILS % (AUTO) 0.6 %; EOSINOPHILS # (AUTO) 0.4 10^3/uL (0.0-0.7); EOSINOPHILS % (AUTO) 3.7 %; HCT - HEMATOCRIT 42.4 % (37.0-47.0); HGB - HEMOGLOBIN 13.2 g/dL (12.0-16.0); LYMPHOCYTES # (AUTO) 2.1 10^3/uL (1.5-3.5); MEAN CORPUSCULAR HEMOGLOBIN 28.9 pg (27.0-31.0); MEAN CORPUSCULAR HGB CONC 31.1 g/dL (32.0-36.0); MEAN CORPUSCULAR VOLUME 92.8 fL (81.0-99.0); MEAN PLATELET VOLUME 9.6 fL (7.9-10.8); MONOCYTES # (AUTO) 0.7 10^3/uL (0.0-1.0); MONOCYTES % (AUTO) 6.2 %; NEUTROPHILS # (AUTO) 8.2 10^3/uL (1.5-6.6); NEUTROPHILS % (AUTO) 71.1 %; PLT - PLATELET COUNT 359 10^3/uL (130-450); RED BLOOD COUNT 4.57 10^6/uL (4.20-5.40); RED CELL DISTRIBUTION WIDTH 12.4 % (12.0-15.0); WHITE BLOOD COUNT 11.6 x10^3/uL (4.8-10.8)
[2022-11-09 12:39] LABS: ALBUMIN 4.4 g/dL (3.2-5.5); ALBUMIN/GLOBULIN RATIO 1.3 (1.0-2.2); ALKALINE PHOSPHATASE 59 IU/L (42-121); ALT ALANINE AMINOTRANSFERASE 40 IU/L (10-60); AST ASPARTATE AMINOTRANSFERASE 46 IU/L (10-42); BILIRUBIN,TOTAL 0.4 mg/dL (0.2-1.0); BUN - BLOOD UREA NITROGEN 11 mg/dL (6-20); CALCIUM 9.9 mg/dL (8.5-10.3); CARBON DIOXIDE - CO2 26 mmol/L (21-32); CHLORIDE 104 mmol/L (101-111); CHOL/HDL RATIO 3.6 (<4.4); CHOLESTEROL 277 mg/dL; CREATININE 0.8 mg/dL (0.6-1.3); GFR - MDRD 100 (>89); GLUCOSE 85 mg/dL (74-104); HDL CHOLESTEROL 76 mg/dL; LDL CHOLESTEROL,CALCULATED 173 mg/dL; LDL/HDL RATIO 2.3 (<4.4); SODIUM 137 mmol/L (135-145); TOTAL PROTEIN 7.9 g/dL (6.4-8.9); TRIGLYCERIDES 139 mg/dL (48-352); VLDL CHOLESTEROL 28 mg/dL
[2022-11-09 12:46] LABS: THYROID STIMULATING HORMONE 1.76 uIU/mL (0.34-5.60)
[2022-11-09 12:51] LABS: ESTIMATED AVERAGE GLUCOSE 65 mg/dL (70-100); HEMOGLOBIN A1c% 3.9 % (4.27-6.07)
== END 2022-11-09 08:34 | disposition home or self-care (01) ==
LOC: LAB.N 08:33
PROVIDERS: ATTEND Nurse Practitioner
DX: Z79.899 Other long term (current) drug therapy (principal)
CPT/HCPCS: 36415; 80053; 80061; 83036; 83721; 84443; 85025

== ENCOUNTER 2023-11-13 14:55 | Outpatient (CLI) | payer OTHER ==
--- NOTE | 2023-11-13 18:15 | SLEEP CARE CONSULTATION ---
Information from patient questionnaire entered by Andrew Gleason. I have reviewed and concur with the information entered by Andrew Gleason. This document represents the service I personally performed and the decisions made by me, Melissa Mitchell MD, [facility]. History of Present Illness Service Date and Time: 11/13/2023 1455 Reason for Visit: New patient Date of Onset: SINCE MARCH Usual bedtime: 2100 Time it takes to fall asleep: 30-60MINS Snores at night: No Observed to quit breathing while asleep: No Sleeps alone due to snoring: No Number of times waking at night: 2-4 Reasons for waking at night: reports: Other (UNKNOWN, NOISE) Toss, Turn, or Twitch while sleeping: Yes Recalls having dreams: Yes Usually gets out of bed at: 0545 Feels refreshed in the morning: No Morning headache: Yes Sleepy or fatigued during the day: Yes Ever fallen asleep while driving: No Takes day naps: Yes Dreams during day naps: No Prior sleep studies: No Additional HPI information: I have the pleasure of seeing Ms. Griffin today regarding the possibility of her having obstructive sleep apnea. As you know, she is a 33-year-old lady who complains of insomnia since March of this year. The patient tells me that she normally goes to bed around 9 pm, and it takes her approximately 30 - 60 minutes to fall asleep. She does not snore. She has never been observed to stop breathing in her sleep. Her sleeps in the same bed. She can recall waking up on the average of 2 - 4 times during the night. Most of the time she wakes up because of unknown reason. She has never awakened because of her own snoring, choking, or having to gasp for air. There is a lot of tossing and turning in her sleep. She has somniloquy (sleep talking) but not somnambulism (sleepwalking). Generally, she can recall having dreams. In the morning she usually gets up out of the bed around 5:45 a.m. not feeling refreshed nor rested. On her days off, she gets up between 8 10 am. She usually has a morning headache that is gone after a cup of coffee. During the day she complains of feeling sleepy and fatigued. Her score on Dresden Sleepiness Scale is 8 out of 24. She never has fallen asleep while driving nor has had any accident due to sleepiness. She usually does not take naps during the day. She denies having impaired concentration during the day. - Parasomnia Symptoms Ever been unable to move upon waking from sleep: No Walks in sleep: No Talks in sleep: Yes Ever acted out dreams in sleep: Yes Ever felt weak in the knees when startled or emotional: Yes Bothered by creepy, crawly, restless sensations in legs: No Subjective Initial D[place]den Sleepiness Scale score: 8 (11/13/23) Past Medical History Past Medical History: reports: Anxiety Social History The patient's occupation is a UNEMPLOYED. Patient is and lives in . Have you smoked in the past 12 months: No Cigarettes per day (20/pack): 10 Years of smokin Quit date: 2021 Smoking Pack Years: 5.0 Alcohol use: No Caffeine use: Yes Caffeine amount and frequency: 2-4CUPS EVERYDAY Family History Family history of sleep disordered breathing: Yes Family Hx Sleep Apnea: Mother: Snoring, Sleep apnea - Treated, Grandparent: Snoring Allergies and Home Medications Known drug allergies: No Drug allergies reviewed: Yes Home medication list reviewed: Yes Allergy and home medication list: Allergies No Known Drug Allergies Allergy (Verified 11/13/23 14:58) Review of Systems Weight gain over past 5 years: 30 Weight loss over past 5 years: 25 Cardiovascular: denies: high blood pressure, palpitations, chest pain, irregular heart rate or pulse, leg or foot swelling, have to sleep sitting up, other Respiratory: denies: shortness of breath, wheeze, sputum production, chronic cough, other Gastrointestinal: denies: heartburn, difficulty swallowing, nausea, vomitting, diarrhea, abdominal pain, other Urinary: denies: incontinence, frequency, urgency, impotence, other Neurological: reports: headaches Psychiatric: reports: anxiety Ear/Nose/Throat: reports: wisdom teeth removed Endocrine: denies: thyroid disease, history of goiter, sluggishness, too hot or cold, excessive thirst, increased appetite, increased urination, unexplained weakness, other Musculoskeletal: denies: joint pain, neck pain, back pain, joint swelling, muscle pain or cramping, mobility problems, other Immunologic: reports: sneezing, allergies to food or environment Physical Exam Vital signs obtained and entered by: ANDREW Figueroa MA Blood Pressure: 110/72 (RIGHT ARM) Cuff size: regular Heart Rate: 79 O2 Saturation: 100 Height: 5 ft 0.75 in Weight: 110 lb 12.8 oz Body Mass Index: 21.1 BMI Classification: Normal Neck circumference: 13.75 Mood/affect: normal HEENT: No craniofacial malformation Nostrils: patent to airflow Turbinates: normal Septum: midline Mouth and throat: narrow oropharynx Soft palate: long Hard palate: normal Uvula: normal Uvula visualization: 50% Mallampati Class II Tongue: normal in size Tonsils: small Chin and jaw: normal size and position Neck: normal w/o lymphadenopathy or thyromegaly Heart: regular rate and rhythm Lungs: clear bilaterally Extremities: no edema or clubbing Neurologic: intact Impression and Plan IMPRESSION: 1. Insomnia, most likely due to irregular sleep-wake schedule and excessive time spent in bed. On weeknights, she spends 8:45 hours in bed and up to 12 hours on her days off. She was advised to keep a regular wake up time and not spend more than 8 hours in bed. Sleep disrupting conditions will be ruled out with an in-laboratory polysomnography. Narrow oropharynx is a common predisposing factor for obstructive sleep apnea-hypopnea syndrome. I informed the patient of what the sleep studies involve and after some discussion, she agreed to proceed. Plan: 1. Schedule an in-laboratory polysomnography. 2. Return for follow up after the sleep study. Follow up with Sleep Care in: 1-2 months Visit Type: In Office Time Spent with Patient (minutes): 15 Provider Statement: I spent 100% of the Face to Face Visit with the patient with greater than 50% spent counseling the patient and coordination of care.
[2023-11-13 18:28] VITALS: BP 110/72; O2SAT 100
== END 2023-11-13 14:56 | disposition home or self-care (01) ==
LOC: SC 14:55
PROVIDERS: ATTEND Internal Medicine Pulmonary Disease
DX: G47.00 Insomnia, unspecified (principal); Z87.891 Personal history of nicotine dependence
CPT/HCPCS: 99202; 99212